=== PATIENT | female | born 1985 | race Caucasian/White ===

== ENCOUNTER 2016-11-18 11:52 | Day surgery (SDC) | payer OTHER ==
[~2016-11-18] VITALS: Ht 167.6 cm; Wt 116.9 kg
[~2016-11-18 11:52] MED LIST: ALLERGY10 M1 PO; AMBIEN10 MG PO; AMOXICILLIN500 M1 PO; ASACOL HD800 MG PO; ASCORBIC ACID500 M3 PO; ASPIR-TRIN325 M1 PO; AUGMENTIN875 MG PO; BENADRYL25 MG PO; BUPROPION HCL150 M2 PO; BUSPIRONE HCL15 MG PO; CALCIUM 500 +1 EAC2 PO; CHOLESTYRAMINE P4 GM PO; CYCLOBENZAPRINE10 MG PO; CYMBALTA30 MG PO; CYMBALTA60 MG PO; DAILY VITAMIN1 EAC2 PO; DIAMOX250 MG PO; DICYCLOMINE HCL20 MG PO; FERROUS SULFAT325 MG PO; FLAGYL500 MG PO; FLONASE16 G1 BOTH NARES; HYDROCODON-ACE1 EAC7 PO; HYDROXYZINE HCL25 MG PO; HYOSCYAMINE0.125 MG PO; INDERAL10 MG PO; KETOROLAC TROME10 MG PO; KLONOPIN0.5 M1 PO; LAMICTAL100 MG PO; LAMICTAL25 MG PO; LEVBID0.375 MG PO; LOPERAMIDE2 M1 PO; LYRICA100 MG PO; LYRICA150 MG PO; LYRICA75 MG PO; MECLIZINE HCL25 MG PO; METFORMIN HCL500 M1 PO; METFORMIN HCL500 MG PO; METROGEL-VAGINA70 GM VG; MIRENA52 MG IY; MOBIC7.5 MG PO; MOTRIN600 MG PO; MOTRIN800 MG PO; NEXIUM20 MG PO; NEXIUM40 MG PO; NORCO 5/3251 TABLET PO; OMEPRAZOLE40 M1 PO; PERCOCET 5/31 TABLET PO; PRAZOSIN HCL2 MG PO; PREDNISONE10 M1 PO; PREDNISONE20 MG PO; PROBIOTIC1 EAC1 PO; PROCHLORPERAZIN10 MG PO; PROMETHAZINE HC25 M1 PO; PROPRANOLOL HCL10 MG PO; RANITIDINE HCL150 MG PO; RANITIDINE HCL300 MG PO; SUCRALFATE1 GM PO; TIZANIDINE HCL4 M1 PO; TOPIRAMATE100 MG PO; TRAZODONE HCL50 MG PO; UCERIS9 MG PO; VENTOLIN HFA18 GM IH; VITAMIN C500 M1 PO; VITAMIN D1000 INTUN PO; VITAMIN D250000 UNIT PO; VITAMIN D31000 UNI2 PO; VITAMIN D31000 UNIT PO; VITAMIN D32000 UNI1 PO; ZANTAC150 MG PO; ZINC50 M2 PO; ZOLOFT100 MG PO; ZOLOFT50 MG PO
[2016-11-18 13:08] LABS: POINT-OF-CARE METER ID UU14174212
== END 2016-11-18 14:18 | disposition home or self-care (01) ==
LOC: PAIN 11:52 → SDC 12:30 → PAIN 14:18
PROVIDERS: Anesthesiology Pain Medicine
PROC: 3E0T3BZ Introduction of Anesthetic Agent into Peripheral Nerves and Plexi, Percutaneous Approach (ICD-10-PCS; principal; 2016-11-18)
DX: M47.896 Other spondylosis, lumbar region (principal); M51.36 Other intervertebral disc degeneration, lumbar region; M54.16 Radiculopathy, lumbar region; K21.9 Gastro-esophageal reflux disease without esophagitis; F41.1 Generalized anxiety disorder; F17.200 Nicotine dependence, unspecified, uncomplicated; K76.0 Fatty (change of) liver, not elsewhere classified; M96.1 Postlaminectomy syndrome, not elsewhere classified; E11.9 Type 2 diabetes mellitus without complications; G89.4 Chronic pain syndrome
CPT/HCPCS: 82948; J1030; J2250; J3010; S0020

== ENCOUNTER 2017-10-26 08:57 | Day surgery (SDC) | payer OTHER ==
[~2017-10-26] VITALS: Ht 170.2 cm; Wt 110.7 kg
[~2017-10-26 08:57] MED LIST changes: +ATARAX10 MG PO; +FLEXERIL10 MG PO; -HYDROXYZINE HCL25 MG PO; -LYRICA150 MG PO; +LYRICA200 MG PO; +PERCOCET 10/1 TABLET PO; +VENLAFAXINE HCL75 M1 PO
== END 2017-10-26 10:10 | disposition home or self-care (01) ==
LOC: PAIN 08:57 → SDC 09:15 → PAIN 10:10
PROVIDERS: Anesthesiology Pain Medicine
DX: M51.17 Intervertebral disc disorders with radiculopathy, lumbosacral region (principal); M47.26 Other spondylosis with radiculopathy, lumbar region; G89.29 Other chronic pain; M96.1 Postlaminectomy syndrome, not elsewhere classified; Z98.1 Arthrodesis status; E11.9 Type 2 diabetes mellitus without complications; K21.9 Gastro-esophageal reflux disease without esophagitis; E66.01 Morbid (severe) obesity due to excess calories; Z68.38 Body mass index [BMI] 38.0-38.9, adult; I10 Essential (primary) hypertension; E03.9 Hypothyroidism, unspecified; F17.200 Nicotine dependence, unspecified, uncomplicated; Z79.891 Long term (current) use of opiate analgesic; Z79.84 Long term (current) use of oral hypoglycemic drugs
CPT/HCPCS: 82948; J1030; J2250; J3010; S0020

== ENCOUNTER 2017-11-02 10:46 | Day surgery (SDC) | payer OTHER ==
[~2017-11-02] VITALS: Ht 170.2 cm; Wt 110.7 kg
[2017-11-02] MEDS ORDERED: VENLAFAXINE H37.5 MG PO (11:04)
[2017-11-02] MEDS ORDERED: VENLAFAXINE H37.5 M3 PO (11:05)
== END 2017-11-02 12:05 | disposition home or self-care (01) ==
LOC: PAIN 10:46 → SDC 11:00 → PAIN 12:05
PROVIDERS: Anesthesiology Pain Medicine
DX: M47.816 Spondylosis without myelopathy or radiculopathy, lumbar region (principal); G89.4 Chronic pain syndrome; M51.36 Other intervertebral disc degeneration, lumbar region; Z98.1 Arthrodesis status; Z79.891 Long term (current) use of opiate analgesic; F17.200 Nicotine dependence, unspecified, uncomplicated
CPT/HCPCS: 82948; J1030; J2250; J3010; S0020

== ENCOUNTER 2017-12-29 08:45 | Day surgery (SDC) | payer OTHER ==
[~2017-12-29] VITALS: Ht 170.2 cm; Wt 115.7 kg
[~2017-12-29 08:45] MED LIST changes: +RISPERDAL2 MG PO; +TOPAMAX50 MG PO; +VENLAFAXINE H37.5 M3 PO; +VENLAFAXINE H37.5 MG PO
== END 2017-12-29 10:10 | disposition home or self-care (01) ==
LOC: PAIN 08:45
PROVIDERS: Anesthesiology Pain Medicine
PROC: 3E0S33Z Introduction of Anti-inflammatory into Epidural Space, Percutaneous Approach (ICD-10-PCS; principal; 2017-12-29)
DX: M51.04 Intervertebral disc disorders with myelopathy, thoracic region (principal); Z98.1 Arthrodesis status; G89.4 Chronic pain syndrome; M47.816 Spondylosis without myelopathy or radiculopathy, lumbar region; M51.36 Other intervertebral disc degeneration, lumbar region; F17.200 Nicotine dependence, unspecified, uncomplicated; E11.9 Type 2 diabetes mellitus without complications; I10 Essential (primary) hypertension; G43.909 Migraine, unspecified, not intractable, without status migrainosus; K21.9 Gastro-esophageal reflux disease without esophagitis; K22.70 Barrett's esophagus without dysplasia; K58.9 Irritable bowel syndrome, unspecified; Z79.891 Long term (current) use of opiate analgesic; M96.1 Postlaminectomy syndrome, not elsewhere classified; E66.01 Morbid (severe) obesity due to excess calories; Z68.39 Body mass index [BMI] 39.0-39.9, adult; Z88.8 Allergy status to other drugs, medicaments and biological substances; Z91.040 Latex allergy status
CPT/HCPCS: 82948; J1100; J2250

== ENCOUNTER 2018-05-17 10:25 | Day surgery (SDC) | payer OTHER ==
[~2018-05-17] VITALS: Ht 170.2 cm; Wt 111.6 kg
[~2018-05-17 10:25] MED LIST changes: +CINNAMON500 MG PO; +DUEXIS 800-26.1 EACH PO; +GINGER250 MG PO; +MINIPRESS5 MG PO; +MIRENA1 EACH IY; -MIRENA52 MG IY; +ONE DAILY WOME1 EACH PO; +PROBIOTIC & AC1 EACH PO; +TEGRETOL200 MG PO
== END 2018-05-17 12:28 | disposition home or self-care (01) ==
LOC: PAIN 10:25 → SDC 10:45 → PAIN 10:45
PROVIDERS: Anesthesiology Pain Medicine
PROC: 3E0S33Z Introduction of Anti-inflammatory into Epidural Space, Percutaneous Approach (ICD-10-PCS; principal; 2018-05-17)
PROC: B01B0ZZ Fluoroscopy of Spinal Cord using High Osmolar Contrast (ICD-10-PCS; principal; 2018-05-17)
DX: M54.16 Radiculopathy, lumbar region (principal); M51.36 Other intervertebral disc degeneration, lumbar region; M47.816 Spondylosis without myelopathy or radiculopathy, lumbar region; G89.4 Chronic pain syndrome; M96.1 Postlaminectomy syndrome, not elsewhere classified; M16.10 Unilateral primary osteoarthritis, unspecified hip; M70.71 Other bursitis of hip, right hip; Z79.891 Long term (current) use of opiate analgesic; F17.200 Nicotine dependence, unspecified, uncomplicated; Z79.84 Long term (current) use of oral hypoglycemic drugs; Z68.39 Body mass index [BMI] 39.0-39.9, adult
CPT/HCPCS: 82948; J1100; J2250; J3010